=== PATIENT | male | born 1960 | race Caucasian/White ===

== ENCOUNTER 2016-08-31 15:44 | Emergency (ER) | payer OTHER ==
[~2016-08-31] VITALS: Ht 182.9 cm; Wt 65.8 kg
--- NOTE | 2016-08-31 16:20 | NUR ---
PATIENT ARRIVED TO ER C/O RIGHT LOWER EXTREMITY INJURY S/P SLIP AND FALL BETWEEN METAL PIPES. PATIENTS RIGHT FOOT IS SWOLLEN, WITH 2 ABRASIONS ON LATERAL AND MEDIAL FOOT. PATIENT HAS 10/10 PAIN UPON ACTIVITY. SAFETY AND COMFORT MEASURES IN PLACE. AWAITING MD ORDERS.
[2016-08-31] MEDS ORDERED: IBUPROFEN 600 MG TABLET PO ONE ×2 (16:22→16:30)
[2016-08-31] MEDS ORDERED: HYDROCODONE/APAP 5/325MG 1 EACH TABLET PO ONE (16:30)
--- NOTE | 2016-08-31 16:30 | NUR ---
AVIATION MANAGER AT BEDSIDE.
[2016-08-31] MEDS ORDERED: HYDROCODONE/APAP 5/325MG 1 EACH TABLET ONE (16:34)
--- NOTE | 2016-08-31 17:48 | NUR ---
SPLINT APPLIED TO RIGTH FOOT BY EMT.
--- NOTE | 2016-08-31 18:23 | NUR ---
Patient discharged to home in stable condition. Written and verbal after care instructions given. Patient verbalizes understanding of instruction.
[2016-08-31 18:24] VITALS: BP 138/82
== END 2016-08-31 18:25 | disposition home or self-care (01) ==
LOC: ER 15:46
DX: S82.851A Displaced trimalleolar fracture of right lower leg, initial encounter for closed fracture (principal); F17.200 Nicotine dependence, unspecified, uncomplicated; Z72.0 Tobacco use; W01.0XXA Fall on same level from slipping, tripping and stumbling without subsequent striking against object, initial encounter; Y93.89 Activity, other specified; Y92.89 Other specified places as the place of occurrence of the external cause; Y99.9 Unspecified external cause status
CPT/HCPCS: 29515; 73610; 73630; 99284; A4606; Z7610

== ENCOUNTER 2018-12-31 10:11 | Emergency (ER) | payer OTHER ==
[~2018-12-31] VITALS: Ht 167.6 cm; Wt 70.3 kg
--- NOTE | 2018-12-31 10:28 | NUR ---
CAME IN FOR L TESTICLE FOR YEARS BUT WORSE TODAY, +PAIN. TO ER BED 12, HOOKED TO MONITOR, CHANGED TO HOSP W, AWAITING MD CURRY
--- NOTE | 2018-12-31 11:01 | NUR ---
US TECH AT BEDSIDE
[2018-12-31 11:55] VITALS: BP 132/87
--- NOTE | 2018-12-31 11:57 | NUR ---
Updated by MD For discharge Patient discharged to home in stable condition. Written and verbal after care instructions given. Patient verbalizes understanding of instruction.
== END 2018-12-31 11:57 | disposition home or self-care (01) ==
LOC: ER 10:11
DX: N50.3 Cyst of epididymis (principal)
CPT/HCPCS: 76870-TC